=== PATIENT | female | born 2000 | race African-American/Black ===

== ENCOUNTER 2022-03-02 03:53 | Emergency (ER) | payer OTHER ==
[2022-03-02 04:33] VITALS: BP 125/87; PULSE 60; TEMP 97.9; BMI 24.3
[2022-03-02 08:19] LABS: BASO % 0.5 % (0-2.0); EOS % 2.5 % (0-4.5); HEMATOCRIT 35.6 % (32.4-45.2); HEMOGLOBIN 12.1 GM/dL (10.7-15.3); LYMPH % 28.3 % (8-40); MCH 33.2 pg (25.7-33.7); MEAN CELL VOLUME 97.6 fl (80-96); MEAN PLT VOLUME 9.1 fl (7.5-11.1); MONO % 6.3 % (3.8-10.2); NEUT % 62.4 % (42.8-82.8); PLATELET COUNT 309 10^3/uL (134-434); RBC 3.65 M/mm3 (3.60-5.2); WHITE BLOOD COUNT 9.8 K/mm3 (4.0-10.0)
[2022-03-02 08:30] LABS: PH,URINE 6.5 (5.0-8.0); URINE APPEARANCE CLEAR; URINE BILIRUBIN NEGATIVE (NEGATIVE); URINE COLOR YELLOW; URINE GLUCOSE (UA) NEGATIVE (NEGATIVE); URINE KETONE 3+ (NEGATIVE); URINE LEUK ESTERASE NEGATIVE (NEGATIVE); URINE NITRITE NEGATIVE (NEGATIVE); URINE PROTEIN TRACE (NEGATIVE)
[2022-03-02 08:32] LABS: ALBUMIN 3.8 g/dl (3.4-5.0); BLOOD UREA NITROGEN 9.2 mg/dL (7-18); CALCIUM 9.3 mg/dL (8.5-10.1)
[2022-03-02 08:33] LABS: HCG,QUALITATIVE URINE Negative
[2022-03-02 08:34] LABS: CREATININE 0.8 mg/dL (0.55-1.3)
[2022-03-02 08:36] LABS: BILIRUBIN,TOTAL 0.7 mg/dL (0.2-1)
[2022-03-02 08:37] LABS: TOT PROT 7.2 g/dl (6.4-8.2)
== END 2022-03-02 10:04 | disposition home or self-care (01) ==
LOC: JER 03:53
DX: R10.9 Unspecified abdominal pain (principal)
CPT/HCPCS: 36415; 80053; 81003; 83690; 84703; 85025; 87086; 99283-25